=== PATIENT | female | born 1950 | race Caucasian/White ===

== ENCOUNTER 2019-12-29 05:16 | Observation (INO) ==
--- NOTE | 2019-12-23 14:45 | Anesthesiology Consultation ---
Date of Service December 23, 2019 Assessment & Plan (1) Encounter for pre-operative examination: COVID Status: As of 12/22 nurse interview, patient denies known exposure/sick contacts or symptoms of coronavirus. He did travel to [place] "3 weeks ago" to a greenhouse and wore a mask. He was tested for COVID19 at Dr. Eng's office on 12/22, and results are pending. Chart Review Chart Review: Acceptable Risk for Surgery (pending covid testing results from 12/22) and Patient NOT seen in Pre Admission Testing History Surgery Operation Date: 12/29/19 07:00 Proposed Procedures p Right Total Hip Replacement - Toni Eng MD Height/Weight Height: 5 ft 5 in Weight: 90.718 kg Allergies Allergy/AdvReac Type Severity Reaction Status Date / Time penicillin G Allergy Severe HIVES Verified 12/23/19 13:40 Medications Home Medications Medication Instructions Recorded Confirmed Last Taken No Known Home Medications 12/23/19 12/23/19 Unknown Past Medical History Medical History History of migraine Hx of breast cancer Hx of ectopic Seasonal allergies Past Family History Family History Mother Cancer Brain Stem Grandmother Cancer Breast Father Diabetes Other Coronary heart disease Past Surgical History Surgical History H/O knee surgery RT History of colonoscopy History of dilatation and curettage History of gynecologic surgery ECTOPIC History of knee surgery History of tonsillectomy History of tooth extraction Hx of lumpectomy RT (RADIATION) Social History Smoking Status: Never smoker Do You Dip or Chew Tobacco: No Hx Alcohol Use: Yes Alcohol type: wine alcohol intake frequency: a few times a month Hx Substance Use: No substance use type: does not use Testing Laboratory Results Blood Type O Positive 12/16/19 09:52 Antibody Screen NEGATIVE 12/16/19 09:52 12/16/19 WBC: 6.76 H/H: 16.6/48.7 PLATELETS: 204 SODIUM: 140 POTASSIUM: 3.8 CHLORIDE: 107 CO2: 29 BUN: 14 CREATININE: 0.77 GLUCOSE: 99 PT: 11.4 PTT: 26.8 INR: 1.1 Electrocardiogram Date: 12/16/19 Findings: + NSR @ (91bpm) Chest X-Ray Date: 12/16/19 Findings: + NAD
[2019-12-29] MEDS ORDERED: METOCLOPRAMIDE HCL 10 MG TABLET PO SCH (06:00)
[2019-12-29] MEDS ORDERED: LR 500ML BOLUS, THEN 15ML/HR IV SCH (06:00)
[2019-12-29] MEDS ORDERED: LR 60ML/HR IV SCH (06:00)
[2019-12-29] MEDS ORDERED: TRANEXAMIC ACID 1,000 MG **IV Pre-op IV SCH (06:00)
[2019-12-29] MEDS ORDERED: GABAPENTIN 300 MG CAP PO SCH (06:00)
[2019-12-29] MEDS ORDERED: CEFAZOLIN 2000MG 2,000 MG/15 ML SYR IV SCH (06:00)
[2019-12-29] MEDS ORDERED: ACETAMINOPHEN 500 MG TAB PO SCH (06:00)
[2019-12-29] MEDS ORDERED: FAMOTIDINE 20 MG TAB PO SCH (06:00)
[2019-12-29] MEDS ORDERED: MoRPHine SULFATE PF 1 MG/ML 10 ML AMP/VIAL ONE (06:19)
[2019-12-29] MEDS ORDERED: MIDAZOLAM HCL 1 MG/ML 2ML VIAL ONE (06:19)
[2019-12-29] MEDS ORDERED: fentaNYL citrate 100 MCG/2 ML VIAL ONE (06:19)
[2019-12-29] MEDS ORDERED: BUPIVACAINE 0.5 % 5 MG/1 ML PF 10ML VIAL ONE (06:28)
[2019-12-29] MEDS ORDERED: BUPIVACAINE 0.5 % 5 MG/1 ML MPF 30ML VIAL ONE (06:29)
[2019-12-29] MEDS ORDERED: BACITRACIN INJ 50,000 UNIT VIAL ONE (06:29)
[2019-12-29] MEDS ORDERED: EPINEPHrine INJ 1 MG/ML AMP ONE (06:30)
[2019-12-29] MEDS ORDERED: CEFAZOLIN 2,000 MG/15 ML IV PUSH IV ONE (06:48)
[2019-12-29] MEDS ORDERED: CEFAZOLIN 2000MG 2,000 MG/15 ML SYR IV ONE (06:50)
--- NOTE | 2019-12-29 06:53 | History & Physical Bridge Note ---
Date of Service December 29, 2019 History & Physical Bridge Note I have examined the patient, reviewed the History & Physical and in the interval since the performance of the History & Physical I have noted the following changes of clinical significance: no changes noted
[2019-12-29] MEDS ORDERED: PROMETHAZINE HCL 25 MG in SODIUM CHLORIDE 0.9% 50 ML IV PRN (07:00)
[2019-12-29] MEDS ORDERED: ONDANSETRON INJ 2 MG/ML 2 ML VIAL IV PRN (07:00)
[2019-12-29] MEDS ORDERED: NALBUPHINE HCL INJ 10 MG/ML AMP IV PRN (07:00)
[2019-12-29] MEDS ORDERED: NALOXONE HCL 0.08 MG in SYRINGE 1.8 ML IV PRN (07:00)
[2019-12-29] MEDS ORDERED: DC INTRASPINAL MORPHINE SCH (07:00)
[2019-12-29] MEDS ORDERED: NALOXONE HCL 1 MG in SODIUM CHLORIDE 0.9% 1000ML 1,000 ML IV PRN (07:00)
[2019-12-29] MEDS ORDERED: LACTATED RINGER'S 500 ML IV PRN (07:00)
[2019-12-29] MEDS ORDERED: ePHEDrine sulfate 50 MG/ML AMP IV PRN (07:00)
[2019-12-29] MEDS ORDERED: DiphenhydrAMINE HCL 50 MG/ML VIAL IV PRN (07:00)
[2019-12-29] MEDS ORDERED: SODIUM CHLORIDE 0.9% 1000ML 1,000 ML IV SCH (07:00)
[2019-12-29] MEDS ORDERED: NO NARCOTICS OR SEDATIVES SCH (07:00)
[2019-12-29] MEDS ORDERED: MoRPHine SULFATE PF 1 MG/ML 10 ML AMP/VIAL INT SPINAL ONE (07:00)
[2019-12-29] MEDS ORDERED: NALOXONE HCL 0.4 MG/1 ML VIAL/CARP IV PRN ×2 (07:00→09:43)
[2019-12-29] MEDS ORDERED: PROPOFOL IV EMULSION 10 MG/ML 20 ML VIAL IV ONE (08:13)
--- NOTE | 2019-12-29 08:30 | Post Operative Brief Note ---
PG Immediate Post Op with CF Date of Surgery December 29, 2019 Pre & Post Diagnosis Operation Date: 12/29/19 07:00 Pre-Op Diagnosis: Right Hip Degenerative Joint Disease Post-Op Diagnosis: Right Hip Degenerative Joint Disease I identified the patient and participated in the time-out.: Yes Procedure Operation Date: 12/29/19 07:00 Actual Procedures p Right Total Hip Replacement Uncemented(Right) - Toni Eng MD Surgeon Toni Eng MD Janitorial Manager Arsen, PAC Estimated Blood Loss 200 Findings Consistent with Post-Op Diagnosis Fluids 1400 cc Specimens Specimen Description: A. Right Femoral Head Drains Carbone Catheter (16fr inserted by SCAR Mcclain without difficulty) Anesthesia Type Spinal MAC Complications none Disposition Accompanied Patient To Recovery: Yes Disposition: Recovery Room
--- NOTE | 2019-12-29 08:52 | XRay Report ---
XR hip 1V RT w pelvis CLINICAL HISTORY: 69 years-old Female presenting with IN PACU - A/P PELVIS and LATERAL HIP . TECHNIQUE: Single frontal view of the pelvis and crosstable lateral view of the right hip were obtain ed. COMPARISON: 10/10/2019. FINDINGS: There has been interval total right hip arthroplasty. No malalignment. No periprosthetic fracture or lucency. Overlying skin prachi along the lateral right thigh. Soft tissue emphysema. Visualized port ion of the pelvis intact. Moderate degenerative change of the left hip. IMPRESSION: Expected postsurgical findings status post right hip arthroplasty. ACT 112: Negative or not required by law. Electronically signed by: Rui Garcia M.D. 12/29/2019 8:51 AM
[2019-12-29] MEDS ORDERED: METOCLOPRAMIDE HCL INJ 5 MG/ML 2 ML VIAL IV PRN (09:43)
[2019-12-29] MEDS ORDERED: ALUMINUM/MAGNESIUM SUSP 30 ML UDC PO PRN (09:43)
[2019-12-29] MEDS ORDERED: MAGNESIUM HYDROXIDE SUSP 30 ML UDC PO PRN (09:43)
[2019-12-29] MEDS ORDERED: bisacodyL 10 MG SUPP PR PRN (09:43)
[2019-12-29] MEDS: SODIUM CHLORIDE 0.9% 1000ML 1,000 ML IV SCH ×2 (10:34→20:56)
[2019-12-29] MEDS: DOCUSATE SODIUM 100 MG CAP PO SCH ×2 (10:35→20:55)
[2019-12-29] MEDS: MULTIVITAMIN TAB PO SCH (10:35)
[2019-12-29] MEDS: ASPIRIN 81 MG ECTAB PO SCH ×2 (10:36→20:55)
--- NOTE | 2019-12-29 10:53 | Operative Report ---
Post Operative Report Pre & Post Diagnosis Operation Date: 12/29/19 07:00 Pre-Op Diagnosis: Right Hip Degenerative Joint Disease Post-Op Diagnosis: Right Hip Degenerative Joint Disease I identified the patient and participated in the time-out.: Yes Procedure Operation Date: 12/29/19 07:00 Actual Procedures p Right Total Hip Replacement Uncemented(Right) - Toni Eng MD Surgeon Toni Eng MD Full Service Supervisor Arsen, PAC Estimated Blood Loss 200 Findings Consistent with Post-Op Diagnosis Operative findings revealed advanced right hip DJD with grade 4 changes of the femoral head and acetabulum. She had fairly large anterior acetabular osteophytes. Moderate-sized joint effusion. Fluids 1400 cc Specimens Right femoral head sent for pathology. Drains None. Anesthesia Type Spinal MAC Complications none Disposition Accompanied Patient To Recovery: Yes Disposition: Recovery Room Indications Patient is a 69-year-old female is had about a year history of increasing right hip pain discomfort. She been through extensive conservative treatment. Her symptoms continue to progress despite this treatment. X-rays show progressive hip arthritis. She failed all conservative care and elected proceed with surgical treatment. Description of Procedure Operative implants consist of: 1. Biomet G7 size 56 mm acetabular shell. 2. 6.5 cancellus acetabular screws 1 of 35 mm length and 1 to 20 mm length. 3. Florence hole eliminator. 4. 56 mm outer diameter and 36 mm inner diameter highly cross-linked polyethylene liner. 5. Depuy Corail size 12 KLA femoral stem. 6. +1.5/36 mm ceramic articular ball. The patient was taken to the operating room identified and placed on the operating table supine position protectors were properly padded. IV antibiotics were 5 by the anesthesia team. A spinal anesthetic and been implemented holding area. A Carbone catheter was placed in sterile fashion. The patient was then placed in the left lateral decubitus position. An axillary roll was placed. Stulberg hip positioner was used for positioning. The right hip and leg were then prepped and draped in usual sterile fashion. The posterior lateral approach of the right hip was then performed through a curvilinear incision centered over the greater trochanter. Sharp dissection was cut through subcutaneous this down to the IT band and gluteal fascia. The IT band gluteal fascia were then incised longitudinally in line with skin incision. The underlying greater truck bursa was excised. The piriformis and external rotators were tagged and taken off the posterior aspect of the hip joint capsule. Great care was taken throughout the procedure to protect the sciatic nerve at all times. A posterior capsulotomy was then performed leaving a large flap for later repair. Hip was internally rotated and dislocated. A femoral n jessica osteotomy cut was made with Final Cut 14 mm above the lesser trochanter. Femoral head was removed and sent for pathology. The femur was retracted anteriorly. Attention drawn the acetabulum. The acetabulum labrum was excised. The pulmonary fat was excised. Sequential reaming the acetabular was then performed begin with size 45 and progressing up to a 55. I did just touch the entrance with a 56 reamer. A 56 mm Biomet G7 acetabular shell was then placed in about 40 degrees lateral opening and 20 to 25 degrees of anteversion. It was fixed with two 6.5 cancellus acetabular screws. Trial liner was placed. An anterior osteophyte was removed. Attention drawn the femur. The proximal femur was entered with a cookie-cutter followed by canal finder. I then broached begin the size 8 and progressing up to 12. We got good fit of the 12. Calcar reamer was used smooth and off the calcar. I then trialed the hip and the +5 was fully stable but just seemed a bit tight and a little bit long. I felt we needed to decrease the neck length slightly. We then trialed the +1.5 and the hip was fully stable in full extension and external rotation and flexion to 90 degrees into rotation over 60 degrees. Soft tissue tension seemed appropriate and leg lengths seem equal. I elect to place these implants. All trial implants were removed. An apex hole limited was placed. Highly cross-linked polyethylene liner was placed. A Rekha KLA size 12 femoral stem was impacted in position. A +1.5/36 mm ceramic articular ball was placed. Hip was located once again found to be stable. Attention drawn toward closing. New breath wounds irrigated copious pulsatile lavage solution. I did inject locally with 50 cc of half percent Marcaine with epinephrine. The posterior capsule and external rotators then repaired through drill holes in the posterior trochanter with #2 Tycron suture. The IT band gluteal fascia then closed in 1 PDS suture running fashion with subcutaneous tissue then closed with 2 layers the deep layer #1 Vicryl suture and subcutaneous tissues with 2-0 Dexon suture in a buried interrupted fashion. Skin was closed skin rpachi. Leg was then cleaned dried and sterile dressing composed of Xeroform, 4 x 4's, sterile ABD pad and foam tape was applied. Patient then transferred to the recovery room in stable condition. The patient tolerated the procedure well no complications. I attest to the content of the Intraoperative Record and any orders documented therein. Any exceptions are noted below.
--- NOTE | 2019-12-29 11:53 | Progress Notes ---
DATE: 12/29/2019 SUBJECTIVE: A 69-year-old white female postop from a right total hip replacement. She is doing well. Not having any pain yet. Not feeling dizzy or lightheaded. No chest pain or shortness of breath. OBJECTIVE: VITAL SIGNS: Temperature 36.3. Vital signs stable. GENERAL: Shows a pleasant elderly female. She is sitting up in bed, looks pretty comfortable. LUNGS: Clear to auscultation. HEART: Has a regular rate and rhythm. ABDOMEN: Soft, nontender, nondistended. EXTREMITIES: Grossly neurovascularly intact except as follows: Examination of the right hip and leg reveals that her leg lengths to be equal. Her leg is well aligned. Hip is located. Dressing is clean, dry and intact. She can dorsiflex and plantarflex her foot appropriately. X-RAYS: X-rays of the right hip from recovery room are reviewed. She has a right uncemented total hip arthroplasty. Components looked to be in good position. No signs of problems. ASSESSMENT: A 69-year-old white female postoperative from a right hip replacement, doing well. Hip is located. She is neurologically intact. Her pain is controlled. PLAN: 1. DVT prophylaxis including thigh-high TEDs, SCDs, and aspirin twice a day. 2. PT/OT. She can weightbear as tolerated. Right total hip protocol. 3. Pain control, doing well with current pain regimen. We are going to try and limit narcotics. We will use Tylenol around the clock, limited Toradol and tramadol. 4. IV antibiotics x24 hours. 5. Disposition: Plan to discharge her home with some home health once adequately recovered and medically stable.
[2019-12-29] MEDS: KETOROLAC TROMETHAMINE 15 MG/ML VIAL IV SCH ×3 (12:29→23:41)
[2019-12-29] MEDS: ACETAMINOPHEN 500 MG TAB PO SCH ×2 (13:26→20:55)
[2019-12-29] MEDS ORDERED: TRANEXAMIC ACID / 0.7% NACL 1,000 MG/100 ML BAG IV SCH (14:30)
[2019-12-29] MEDS: CEFAZOLIN 2000MG 2,000 MG/15 ML SYR IV SCH ×2 (14:32→22:38)
--- NOTE | 2019-12-29 15:13 | Anesthesiology Progress Note ---
Date of Service December 29, 2019 Anesthesia Post Procedure Vital Signs Vital Signs: Temp Pulse Pulse Resp BP Pulse Ox 12/29/19 14:35 18 97 12/29/19 13:30 16 99 12/29/19 12:36 36.5 C 70 18 131/77 97 12/29/19 11:30 36.3 C L 69 18 125/78 99 12/29/19 10:29 36.4 C L 76 18 139/88 99 12/29/19 09:57 36.4 C L 78 18 121/76 95 12/29/19 09:48 36.4 C L 76 18 117/72 98 12/29/19 09:05 72 18 103/62 95 12/29/19 08:55 36.6 C 75 18 109/62 96 12/29/19 08:45 72 18 91/53 L 97 12/29/19 08:35 78 18 110/62 96 12/29/19 08:29 36.1 C L 83 19 93/52 L 94 12/29/19 05:58 36.9 C 88 18 156/88 H 97 Transfer of Care Handoff Completed per policy Notes Mental Status: alert / awake / arousable Patient Amnestic to Procedure: Yes Nausea / Vomiting: adequately controlled Pain: adequately controlled Airway Patency, RR, SpO2: stable & adequate BP & HR: stable & adequate Hydration State: stable & adequate Neuraxial Anesthesia: was administered and sensory block is resolving Anesthetic Complications: no major complications apparent
[2019-12-29] MEDS: FERROUS GLUCONATE 324 MG TAB PO SCH (18:43)
[2019-12-29] MEDS: ASCORBIC ACID 500 MG TAB PO SCH (18:43)
[2019-12-29] MEDS: SENNA 8.6 MG TAB PO SCH (20:55)
[2019-12-30] MEDS ORDERED: ONDANSETRON INJ 2 MG/ML 2 ML VIAL IV PRN (01:01)
[2019-12-30] MEDS ORDERED: TRAMADOL HCL 50 MG TABLET PO PRN (01:01)
[2019-12-30] MEDS ORDERED: HYDROmorphone INJ 0.5 MG/0.5 ML SYR IV PRN (01:01)
[2019-12-30] MEDS: ACETAMINOPHEN 500 MG TAB PO SCH ×3 (05:54→21:46)
[2019-12-30] MEDS: KETOROLAC TROMETHAMINE 15 MG/ML VIAL IV SCH ×4 (05:54→18:52)
[2019-12-30 07:19] LABS: Basophils # (auto) 0.02 K/uL (0-0.2); Basophils % (auto) 0.2 %; Eosinophils # (auto) 0.05 K/uL (0-0.5); Eosinophils % (auto) 0.5 %; Hematocrit (blood only) 41.5 % (37-47); Hemoglobin 13.7 g/dL (12.0-16.0); Immature Granulocytes # (auto) 0.03 K/uL (0.00-0.02); Immature Granulocytes % (auto) 0.3 %; Lymphocytes # (auto) 1.82 K/uL (1.2-3.4); Lymphocytes % (auto) 16.8 %; Mean Corpuscular Hemoglobin 31.1 pg (25-34); Mean Corpuscular Volume 94.1 fL (80-100); Mean Platelet Volume 12.3 fL (7.4-10.4); Monocytes % (auto) 8.3 %; Neutrophils % (auto) 73.9 %; Platelet Count 187 K/uL (130-400); RDW Coefficient of Variation 13.3 % (11.5-14.5); Red Blood Count 4.41 M/uL (4.2-5.4); White Blood Count 10.82 K/uL (4.8-10.8)
[2019-12-30 07:47] LABS: BUN Creatinine Ratio 13.9 (10-20); Calcium 8.1 mg/dl (8.5-10.1); Creatinine Clr Calc Pharmacy 89.8 ml/min; Est GFR (African American) 103.4; Est GFR (Non-African American) 89.2; Potassium 3.8 mmol/L (3.5-5.1)
[2019-12-30] MEDS: ASPIRIN 81 MG ECTAB PO SCH ×2 (08:52→21:46)
[2019-12-30] MEDS: ASCORBIC ACID 500 MG TAB PO SCH ×2 (08:52→18:09)
[2019-12-30] MEDS: FERROUS GLUCONATE 324 MG TAB PO SCH ×2 (08:52→18:09)
[2019-12-30] MEDS: MULTIVITAMIN TAB PO SCH (08:53)
[2019-12-30] MEDS: DOCUSATE SODIUM 100 MG CAP PO SCH ×2 (08:54→21:47)
--- NOTE | 2019-12-30 09:25 | Progress Notes ---
DATE: 12/30/2019 SUBJECTIVE: A 69-year-old white female postop day 1 from right hip replacement. She is doing well. Had a little bit of buttock pain and soreness but very manageable. No chest pain or shortness of breath. She has been up and ambulating with assistance. OBJECTIVE: VITAL SIGNS: Temperature 37.2. Vital signs stable. GENERAL: Pleasant elderly female. She is lying in bed, looks comfortable. EXTREMITIES: Examination of the right hip and leg reveals the leg lengths to be equal. Hip is located. Her dressing is clean, dry and intact. Thigh is soft and supple. She is neurologically intact. LABORATORY DATA: Hemoglobin is 13.7. Hematocrit 41.5. Electrolytes are stable. ASSESSMENT: A 69-year-old white female postop day 1 from a right hip replacement, doing well. Hip is located. Pain is controlled. She is neurologically intact. PLAN: 1. DVT prophylaxis including thigh-high TEDs, SCDs, and aspirin twice a day. 2. PT/OT. She will weightbear as tolerated. She does need to obey hip precautions. 3. Pain control, doing well with current pain regimen. 4. Disposition: She is planning to be discharged to home with some home health. Her daughter is going to come and stay with her for a week or two. We will see how therapy goes today, but likely discharge tomorrow.
[2019-12-30] MEDS: SODIUM CHLORIDE 0.9% 1000ML 1,000 ML IV SCH (10:55)
[2019-12-30 15:31] VITALS: O2SAT 93
[2019-12-30] MEDS: SENNA 8.6 MG TAB PO SCH (21:47)
[2019-12-31] MEDS: KETOROLAC TROMETHAMINE 15 MG/ML VIAL IV SCH ×2 (00:11→05:53)
[2019-12-31] MEDS: ACETAMINOPHEN 500 MG TAB PO SCH (05:53)
[2019-12-31 07:45] VITALS: BP 119/74; PULSE 82; TEMP 97.9
[2019-12-31] MEDS: ASPIRIN 81 MG ECTAB PO SCH (08:55)
[2019-12-31] MEDS: MULTIVITAMIN TAB PO SCH (08:55)
[2019-12-31] MEDS: FERROUS GLUCONATE 324 MG TAB PO SCH (08:55)
[2019-12-31] MEDS: ASCORBIC ACID 500 MG TAB PO SCH (08:55)
[2019-12-31] MEDS: DOCUSATE SODIUM 100 MG CAP PO SCH (08:56)
--- NOTE | 2019-12-31 09:43 | Progress Notes ---
DATE: 12/31/2019 SUBJECTIVE: A 69-year-old white female postop day 2 from right hip replacement. She is doing quite well. Pain is controlled well. Therapy is going well. No chest pain or shortness of breath. Not feeling dizzy or lightheaded. She feels ready to go home. OBJECTIVE: VITAL SIGNS: Temperature 36.6. Vital signs stable. GENERAL: Shows a pleasant, middle-aged female. She is lying in bed, looks comfortable. She is reading a book when I went in to visit her this morning. EXTREMITIES: Examination of the right hip and leg reveals the leg lengths to be equal. Dressing is clean, dry and intact. Thigh is soft and supple. She is neurologically intact. ASSESSMENT: A 69-year-old white female postop day 2 from right hip replacement, doing well. Pain is controlled. Hip is located. She is neurologically intact. PLAN: 1. DVT prophylaxis including thigh-high TEDs, SCDs, and aspirin twice a day. 2. PT/OT. Weight bear as tolerated. Right total hip protocol. 3. Pain control, doing well with current pain regimen. 4. Disposition: Plan to discharge to home with some home health later today.
--- NOTE | 2020-01-09 07:50 | Discharge Summary ---
Date of Service January 09, 2020 Admission HPI Per Admitting Provider Documented admission H&P Admission Exam (Per Admitting) Constitutional Documented in the admission H&P Discharge Data Consultations 12/30/19 08:00 Consult Case Management - Discharge Planning Routine Procedures Performed Operation Date: 12/29/19 07:00 Actual Procedures p Right Total Hip Replacement Uncemented(Right) - Toni Eng MD Hospital Course (1) Status post total hip replacement, right: 69-year-old female admitted on 12/29/2019 underwent total hip arthroplasty. She tolerated procedure well. There are no complications. She is transferred to the PACU postoperatively and later the orthopedic for further care. She is given Ancef for antibiotic prophylaxis. She is given ANIL stockings, SCDs, aspirin for DVT prophylaxis. Her hemoglobin, hematocrit, and vital signs were monitored during her hospital stay remained stable. She had requiring blood transfusions. There were no complications. Postoperative day 2 she is tolerating regular diet, pain was controlled with oral pain medicine, she was participating in physical therapy. Postop day 2 she was discharged home set up with home health services. She is given printed discharge instruction as well as new prescription structuring Tylenol, aspirin and tramadol. Continue physical therapy. She is weightbearing as tolerated. Continue ANIL stockings. Continue total hip precautions. Follow- up proximately 2 weeks postoperatively or sooner if there are any problems or concerns. Coding Level of Care Code None Diagnoses Status post total hip replacement, right Z96.641
== END 2019-12-31 11:12 | disposition home health service (06) ==
LOC: ASU 05:16 → 3N 05:16